=== PATIENT | female | born 1965 | race Two or more races ===

== ENCOUNTER 2023-07-14 11:52 | Emergency (ER) | payer OTHER ==
[~2023-07-14] VITALS: Ht 165.1 cm; Wt 91.0 kg
[2023-07-14 11:58] VITALS: BP 122/67; PULSE 78; RESP 16; TEMP 97.7; O2SAT 93
[2023-07-14] MEDS ORDERED: HYDROcodone-ACET 10/325MG TAB PO ONE (16:00)
[2023-07-14] MEDS ORDERED: KETOROLAC TROMETH 60MG/2ML VIAL IM ONE (16:00)
[2023-07-14] MEDS ORDERED: ONDANSETRON ODT 4 MG TAB PO ONE (17:15)
[2023-07-14] MEDS ORDERED: MAALOX PLUS or MAALOX 30 ML PO ONE (17:30)
[2023-07-14] MEDS ORDERED: LIDOCAINE VISCOUS 2% 15ML UD MT ONE (17:30)
[2023-07-14] MEDS ORDERED: IBUP-1454 PO (17:32)
[2023-07-14] MEDS ORDERED: OMEP-335 PO (17:32)
[2023-07-14] MEDS ORDERED: BACIOIN15 TOP (17:32)
[2023-07-14] MEDS ORDERED: ACE3T PO (17:32)
== END 2023-07-14 18:00 | disposition home or self-care (01) ==
LOC: ER 11:52 → EDBD 11:52 → ER 18:00
DX: S16.1XXA Strain of muscle, fascia and tendon at neck level, initial encounter (principal); S40.021A Contusion of right upper arm, initial encounter; V89.2XXA Person injured in unspecified motor-vehicle accident, traffic, initial encounter; Y93.89 Activity, other specified; Y92.411 Interstate highway as the place of occurrence of the external cause; Y99.8 Other external cause status
CPT/HCPCS: 72040; 73000; 73030; 73060; 73080; 96372; 99284; J1885; Q0162